=== PATIENT | male | born 1955 | race Caucasian/White ===

== ENCOUNTER → 2022-02-06 10:09 | Outpatient (CLI) | payer MEDICARE, SELFPAY ==
[2022-02-06 11:16] LABS: COVID19 -Nasal RAPID Negative (Negative)
== END ==
PROVIDERS: PCP Physician Assistant; Referring Provider Orthopaedic Surgery; Visit Provider Orthopaedic Surgery
DX: Z20.822 Contact with and (suspected) exposure to COVID-19 (principal)
CPT/HCPCS: 87635; C9803

== ENCOUNTER 2022-02-07 10:51 | Day surgery (SDC) | payer MEDICARE, SELFPAY ==
[2022-02-06 09:07] VITALS: BMI 42.0
[2022-02-07] VITALS (12 sets, daily range): BP systolic 105–149; BP diastolic 71–90; PULSE 70–105; RESP 16–27; TEMP 36.3–36.4; O2SAT 92–97; BMI 42.0
--- NOTE | 2022-02-07 06:00 | DI.RAD.S_ITS ---
PROCEDURE: XR KNEE LT 1TO2V INDICATIONS: prosthesis placement TECHNIQUE: 2 view(s) of the knee acquired. COMPARISON: [facility], CR, XR KNEE 4+ VIEWS LEFT, 09/13/2021, 9:24. FINDINGS: Bones: Patient is status post knee joint arthroplasty. Hardware components are in expected positions. Visualized bony structures are intact. Soft tissues: Overlying postoperative changes are noted. IMPRESSION: Status post knee arthroplasty as above. Dictated by: Lilian Arias M.D. on 02/07/2022 at 16:25 Approved by: Lilian Arias M.D. on 02/07/2022 at 16:25
[2022-02-07] MEDS: LACTATED RINGERS 1,000 ML 42 ML IV (12:05)
[2022-02-07] MEDS: ACETAMINOPHEN 325 MG TABLET 975 MG PO (12:09)
[2022-02-07] MEDS: PREGABALIN 75 MG CAPSULE PO (12:09)
[2022-02-07] MEDS: CELECOXIB 200 MG CAPSULE PO (12:09)
--- NOTE | 2022-02-07 13:04 | PM.PREOP ---
Pre-operative Note COVID-19 COVID-19 status: Negative Result date/Date tested (Pos, Neg/Pending): 02/06/22 Interval Note History & Physical reviewed/Exam performed by Physician: Yes Changes to H&P: No
--- NOTE | 2022-02-07 13:37 | SUR.PREOP ---
Block start time 1320 . Monitoring initiated and maintained throughout procedure. Oxygen and medications given per anesthesiologist instructions. Patient remained stable throughout procedure, no adverse reactions noted. Block end time 1329.
[2022-02-07] MEDS: CEFAZOLIN 2 GM/100 ML PREMIX 100 ML IV (14:05)
[2022-02-07] MEDS: MORPHINE 4 MG/ML INJ INJ (14:22)
[2022-02-07] MEDS: BUPIVACAINE 0.25% (PF) 60 ML, EPINEPHrine 0.3 MG INJ (14:23)
--- NOTE | 2022-02-07 14:26 | SUR.OPER ---
Supine on padded OR bed. Pillow under head, arms secured on padded armboards <90 degree abduction. Safety belt across torso. Non-operative leg secured with tape over blanket over lower leg. Operative leg secured in DeMayo/Marcel/Nathe positioner. Foam padded brace at thigh of operative leg. Position approved by surgeon and anaesthesia
[2022-02-07] MEDS: BUPIVACAINE LIPOSOME 266 MG/20 ML VIAL INJ (15:27)
--- NOTE | 2022-02-07 15:48 | PM.OP.1 ---
Operative Date/Time/Diagnoses Date of procedure: 02/07/22 Time of procedure: 15:48 Pre-op diagnosis: Left knee osteoarthritis Post-op diagnosis: same Procedure & Clinicians Procedure: Left total knee replacement Same procedure as scheduled: Yes Indications: The patient has had progressively worsening left knee pain with radiographic changes consistent with arthritis. Non-operative management has failed and the patient has requested total knee replacement. The risks, benefits and alternatives to surgery were discussed with the patient prior to proceeding. Risks discussed included, but were not limited to, failure to relieve pain, stiffness, infection, nerve damage, deep venous thrombosis, pulmonary embolism, stroke, coma, heart attack, permanent paralysis and , as well as the potential need for eventual revision of the prosthetic. Surgeon: Luis Darling Electrical Designer: Angela Wick Click Yes if Unassisted: No Anesthesia Type: Spinal, Sedation, Peripheral nerve block and Local Operative Notes Findings: Severe medial and patellofemoral osteoarthritis Closure Type: primary Specimen(s): none sent Prosthetic devices, grafts, tissues, transplants, or devices: Implants used in this procedure were manufactured by the [employer] and [employer] and included the BCS II Journey total knee replacement with a size 7 left Oxinium femoral component, a size 7 left non porous tibial base plate, a 9 mm cross-linked polyethylene tibial insert and a 38 mm oval Sofia II patella. Applied: implant(s) Estimated Blood Loss (mL): 25 Tourniquet time (min): 53 Procedure in detail: The patient was seen in the pre-operative area, where the left knee was identified as the operative site and this was marked with my initials. The patient received pre-operative antibiotics, and was taken to the operating room and placed on the operative table in the supine position. After satisfactory anesthesia, a maritime guard out was performed. The left leg was encircled with a tourniquet about the proximal thigh, and the leg was prepared from the toes to the tourniquet with ChloroPrep in the usual fashion and draped through sterile drapes. The leg was elevated and exsanguinated with Eschmark bandage and the tourniquet inflated to 250 mmHg pressure. The knee was approached through an approximately 18 cm incision centered over the patella and carried into the knee through a medial parapatellar arthrotomy. The anterior osteophytes and soft tissues were removed. The rotational landmarks of [place]'s line and the transepicondylar axis were marked on the femur with electrocautery, and intramedullary guide holes for the femur and tibia were created. The distal femoral cut was made in 6 degrees of valgus using the intramedullary guide at the primary cut setting. The proximal tibial cut was then made using the intramedullary guide, taking 9 mm of bone off the less involved side. The extension gap was checked and the rotation of the femoral component confirmed with the gap balancing blocks. The anterior, posterior and chamfer cuts were then made. The posterior osteophytes and soft tissues were then removed. The posterior capsule was injected with part of a mixture of 50 ml 0.25% Marcaine mixed with 20 ml Exparel and 4 mg of morphine for post-operative pain control. The remainder of this mixture was injected into the capsule and subcutaneous tissues during cement curing. The tibia was prepared with the rotation set by an extra medullary guide. Trial tibial and femoral components were then placed and the intercondylar notch cut through the femoral trial. Range of motion was 0-135 degrees, with good stability throughout the range. The patella was then cut to accommodate the patellar prosthetic. There was no need for a lateral release. The trials were then removed, and the femoral hole plugged with a bone plug. The bone was prepared with pulsatile lavage, and dried with a sponge. Cement was applied and the final prosthetics placed. Excess cement was removed during and after cement curing. After confirming there was no extruded cement posteriorly, the final tibial insert was placed. The knee was copiously irrigated and the tourniquet deflated. Hemostasis was obtained. The capsule was closed with interrupted # 2 polyester sutures. The subcutaneous layer was closed with 3-0 Vicryl, and the skin with a running 3-0 V-Lock suture and Dermabond. An Aquacel Ag dressing was applied and the patient was taken to recovery having tolerated the procedure well. A skilled legal administrative assistant was required during this operation for positioning the leg and exposure of the knee. Without the services of Ms. Wick the case would have not been completed as expediently and this would have put the patient at additional risk. Complications: none Post-operative Condition: stable Disposition: PACU Plan for aftercare: The patient will be maintained on a standard total knee replacement protocol with weight bearing as tolerated. The patient will receive aspirin and sequential compression devices for DVT prophylaxis. The patient will be discharged home when safe for the home environment.
--- NOTE | 2022-02-07 16:18 | SUR.PHASEI ---
1618: Pt recovering very well, A&Ox4, denies any distress, VSS, spinal at L5, pulses strong, and ready to transfer to room. Attempt to call report to floor, RN busy at this time, will return call when available. ALEX Moss x 1310. 2 attempts to update family-no answer.
[2022-02-07] MEDS: LACTATED RINGERS 1,000 ML 100 ML IV (18:51)
[2022-02-07] MEDS: ACETAMINOPHEN 325 MG TABLET 650 MG PO (19:05)
[2022-02-07] MEDS: OXYCODONE IR 10 MG TABLET PO (19:05)
--- NOTE | 2022-02-07 19:55 | PC.NURSE ---
Ortho: Pt has most of the sensation back to his lower legs, block and spinal has worn off. Started to have pain. Po pain meds given and effective for now. Resting quietly watching TV. Has not voided since his last void prior to OR. REGIONAL PLANNER called to come bladder scan the patient. Pt doesn't feel the need to void at this time. PPP, brisk cap refill to feet. moves toes. Denies any sensation changes.
[2022-02-07] MEDS: METFORMIN HCL 500 MG TABLET PO (22:05)
[2022-02-07] MEDS: DOCUSATE 100 MG CAPSULE PO (22:05)
[2022-02-07] MEDS: METOPROLOL ER 50 MG TABLET 200 MG PO (22:06)
[2022-02-07] MEDS: HYDROMORPHONE 2 MG TABLET PO (22:06)
[2022-02-07] MEDS: ATORVASTATIN 20 MG TABLET 80 MG PO (22:06)
[2022-02-07] MEDS: MIRTAZAPINE 15 MG TABLET PO (22:07)
[2022-02-07] MEDS: hydrOXYzine pamoate 25 MG CAPSULE PO (22:07)
[2022-02-07] MEDS: gemfibroziL 600 MG TABLET PO (22:08)
[2022-02-08 01:00] VITALS: BP 113/58; PULSE 80; RESP 16; TEMP 36.9; O2SAT 94
[2022-02-08] MEDS: HYDROMORPHONE 2 MG TABLET PO ×4 (01:55→11:18)
[2022-02-08] MEDS: hydrOXYzine pamoate 25 MG CAPSULE PO ×2 (04:56→11:17)
[2022-02-08] MEDS: ACETAMINOPHEN 325 MG TABLET 650 MG PO ×2 (05:03→11:17)
[2022-02-08 05:11] VITALS: BP 138/77; PULSE 90; RESP 18; TEMP 36.4; O2SAT 96
[2022-02-08 05:26] LABS: Hematocrit 32.2 % (41-53); Hemoglobin 11.1 g/dL (13.5-17.5)
[2022-02-08] MEDS: PANTOPRAZOLE DR 20 MG TABLET PO (05:55)
--- NOTE | 2022-02-08 07:49 | PM.DS.1 ---
History of Present Illness History of Present Illness Date Patient Seen: 02/08/22 Time Patient Seen: 07:49 Chief complaint: left TKA Narrative: Operative Date/Time/Diagnoses Date of procedure: 02/07/22 Time of procedure: 15:48 Pre-op diagnosis: Left knee osteoarthritis Post-op diagnosis: same Procedure & Clinicians Procedure: Left total knee replacement Same procedure as scheduled: Yes Indications: The patient has had progressively worsening left knee pain with radiographic changes consistent with arthritis. Non-operative management has failed and the patient has requested total knee replacement. The risks, benefits and alternatives to surgery were discussed with the patient prior to proceeding. Risks discussed included, but were not limited to, failure to relieve pain, stiffness, infection, nerve damage, deep venous thrombosis, pulmonary embolism, stroke, coma, heart attack, permanent paralysis and , as well as the potential need for eventual revision of the prosthetic. Surgeon: Luis Darling Hospital Attendant: Angela Wick Click Yes if Unassisted: No Anesthesia Type: Spinal, Sedation, Peripheral nerve block and Local Operative Notes Findings: Severe medial and patellofemoral osteoarthritis Closure Type: primary Specimen(s): none sent Prosthetic devices, grafts, tissues, transplants, or devices: Implants used in this procedure were manufactured by the [employer] and included the BCS II Journey total knee replacement with a size 7 left Oxinium femoral component, a size 7 left non porous tibial base plate, a 9 mm cross-linked polyethylene tibial insert and a 38 mm oval Sofia II patella. Applied: implant(s) Estimated Blood Loss (mL): 25 Tourniquet time (min): 53 Discharge Providers Provider Discharge Date: 02/08/22 Primary care physician: Amee Ramires PA-C Consults: 02/07/22 16:43 Consult to Discharge Planning Routine Comment: Consult to Physical Therapy Evaluate & Treat Comment: Physician Instructions: postop TKA protocol Discharge provider: Opal Ramires PA-C Summary Hospital Course Discharge Diagnosis: s/p LEFT total knee arthroplasty Acute anemia d/t expected surgical blood loss Hospital Course: Mr Christensen's hospital course was unremarkable. On POD#1 he was sitting up in bed and feeling well; no difficulty eating or voiding. His pain was adequately controlled on oral medication and he wanted to go home pending evaluation and clearance by PT. He has a friend at home to help him who has a h/o B TKA. Exam Vital Signs (past 8 hours): - 02/07/22 23:51 02/08/22 01:00 02/08/22 05:11 Temperature 98.4 F 97.6 F Pulse Rate 70 80 90 Respiratory Rate 16 18 Blood Pressure 122/80 113/58 L 138/77 Pulse Oximetry 94 96 Oxygen Flow Rate 2 2 Oxygen Delivery Method Nasal Cannula Oxygen Flow Rate 2 Narrative Exam Narrative: 4/5 strength in hip flexors, quadriceps, hamstrings; 5/5 DF, PF, EHL on left. Sensation to light touch intact throughout LLE. Calves soft, compressible, nontender and without palpable cords or masses. TROY and Aquacel CDI. Objective Labs Result Diagrams: 02/08/22 05:02 Labs: Laboratory Results - last 24 hr 02/08/22 05:02 Hgb 11.1 L Hct 32.2 L PFSH Medical History (Updated 02/06/22 @ 09:19 by Chantal Manzanares RN) Cardiomyopathy CHF (congestive heart failure) Depression Diabetes (~2017) Easy bruisability GERD (gastroesophageal reflux disease) HLD (hyperlipidemia) HTN (hypertension) Hyperthyroidism Osteoarthritis Surgical History (Updated 02/08/22 @ 07:56 by Opal Ramires PAElliott) AICD (automatic cardioverter/defibrillator) present (08/04/18) History of bilateral carpal tunnel release History of hand surgery History of total left hip arthroplasty (08/04/13) History of total right hip arthroplasty (12/2013) Hx of bilateral cataract extraction Hx of hernia repair Hx of tonsillectomy 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 Multimodal pain control, outpt PT, warfarin with enoxaparin bridge and ASA 81 mg daily for VTE prophylaxis. Discharge Plan Discharge Plan Patient Disposition: Home Discharge orders & Medications Discharge Orders: Discharge (Order); Ordered 02/08/22 Ordered By: Opal Ramires Prescriptions: New oxycodone 5 mg Tablet 5 mg PO Q4H PRN (Reason: Pain, Moderate (4-6)) Qty: 60 0RF hydromorphone 2 mg Tablet 2 mg PO Q3H PRN (Reason: Pain, Severe (7-10)) Qty: 10 0RF acetaminophen 325 mg Tablet 650 mg PO Q6HR PRN (Reason: fever or pain) Qty: 240 1RF docusate sodium 100 mg Capsule 100 mg PO BID PRN (Reason: constipation) Qty: 60 2RF hydroxyzine pamoate 25 mg Capsule 25 mg PO Q4H PRN (Reason: muscle spasm) Qty: 120 1RF Continued metformin 500 mg Tablet 500 mg PO BID atorvastatin 80 mg Tablet 80 mg PO BEDTIME venlafaxine 75 mg Tablet 150 mg PO DAILY metoprolol succinate 200 mg Tablet Extended Release 24 Hr 200 mg PO BID gemfibrozil 600 mg Tablet 600 mg PO BID lisinopril 10 mg Tablet 10 mg PO DAILY warfarin 5 mg Tablet 5 mg PO DAILY omeprazole 20 mg Capsule,Delayed Release(Dr/Ec) 20 mg PO DAILY mirtazapine 15 mg Tablet 15 mg PO BEDTIME enoxaparin 40 mg/0.4 mL Syringe 40 mg SUBCUT Q12H Label Comments: Bridge will start 02/01/22 for left knee surgery 02/07/22 duloxetine 60 mg Capsule,Delayed Release(Dr/Ec) 60 mg PO DAILY aspirin 81 mg Capsule 81 mg PO DAILY Follow up/Referrals: Amee Ramires PA-C [Primary Care Provider] - Luis Darling MD [Physician] - As previously scheduled (Follow up w/ Adalberto Peñaloza PA-C, on 02/22/2022 @ 3:40 pm at [facility] in [place].) Diet/Activity/Treatments Diet: Diet as Tolerated Activity: Walk frequently! Cold/Heat Therapy: Ice to knee as needed for pain. Skin/Wound/Dressing Care Report to your healthcare provider any signs of infection, such as:: chills, fever, night sweats, unusual drainage and unusual redness Dressing: May remove TROY wrap and shower. Keep Aquacel dressing in place until follow up appointment. No bathing or otherwise soaking incision. Visit Report/Discharge Packet Instructions: DI for Knee Replacement Stand Alone Forms: Surgery Discharge Discharge Data Primary Care Provider: Amee Ramires I Attending Provider: Luis Darling Quality VTE Deep Vein Thrombosis/Pulmonary Embolism Present on Admission: No
[2022-02-08] MEDS: HYDROMORPHONE 0.5 MG INJ 0.2 MG IV ×3 (07:53→11:21)
[2022-02-08 08:00] VITALS: BP 133/97; PULSE 105; RESP 17; TEMP 36.3; O2SAT 98
[2022-02-08] MEDS: METFORMIN HCL 500 MG TABLET PO (08:00)
[2022-02-08 08:01] VITALS: BP 138/77; PULSE 90
[2022-02-08] MEDS: METOPROLOL ER 50 MG TABLET 200 MG PO (08:01)
[2022-02-08] MEDS: DOCUSATE 100 MG CAPSULE PO (08:01)
[2022-02-08 08:07] VITALS: BP 138/77; PULSE 90
[2022-02-08] MEDS: VENLAFAXINE 37.5 MG TABLET 150 MG PO (08:07)
[2022-02-08] MEDS: lisinopriL 10 MG TABLET PO (08:07)
[2022-02-08] MEDS: WARFARIN 5 MG TABLET PO (08:09)
[2022-02-08] MEDS: DULOXETINE 30 MG CAPSULE 60 MG PO (08:09)
--- NOTE | 2022-02-08 09:03 | CM.DANOTE ---
DCP Assessment: Payor: [employer] Medicare PCP: Randi Ramires MD Pt is a 66 y.o. M who presented to the hospital for a scheduled left TKA surgery with Dr. Darling on 02/07/22. Pt admitted to the floor for further management and evaluation of his surgical procedure. DCP met with pt this morning to discuss discharge needs. Pt sitting up in bed eating breakfast. Pt states that she lives with his significant other, Monique, in a single story house in [place]. Pt states he is independent at baseline and drives POV. Pt uses a cane and owns a FWW. Pt confirms PCP and insurance. Pt denies previous HH use. DCP explained HH services. DCP stated that she would be able to set up if it is recommended. Pt states that he has outpatient PT services set up already. Pt denies any resources at this time. White board updated and instructed to call. Pt thankful for discussion. P: Pt to work with PT today for eval. If cleared, pt to discharge home via SO POV. R/O HH services. Holley Vergara RN/RAJEEV Discharge Planning/Care Management Advanced directive, confirm from FAMILY Start: 02/07/22 16:59 Freq: Q24H Status: Active Protocol: Document 02/07/22 17:03 CEW (Rec: 02/07/22 17:03 CEW [id number]) Advance Directive, confirm on record Time 17:03 Person contacted patient Copy received No CM Discharge Assessment Start: 02/08/22 09:02 Freq: Status: Active Protocol: Document 02/08/22 09:02 DANIEL (Rec: 02/08/22 09:03 AJ [id number]) Discharge Planning Assessment Assigned Mask Designer Holley Vergara RN/RAJEEV Advance Directives? Yes Advance Directives on File No History Provided By Patient,Medical Record Prior Living Arrangements House Household Members significant other Type of transporation used prior to Drives own vehicle admit Independent with ADL's Yes Is patient alert and oriented? Yes Caregiver for Another No DME Already Rented / Owned FWW / Walker,Cane Discharge Plan Home Transportation Arrangement Girlfriend POV Referrals Initiated None needed Additional Comment At this time. Whiteboard Updated in Patient Room with Yes name and ext. # of Mask Designer Comment Instructed to call Review Status In Process Please Provide Date Initial DC 02/08/22 Assessment Was Performed Next Review Type Continued Stay Review Pre-Anesthesia Assessment Start: 01/29/22 12:53 Freq: Status: Active Protocol: Document 02/06/22 09:07 CAB (Rec: 01/29/22 13:47 [facility] [id number]) Pre-Anesthesia Assessment Patient Information Reviewed Via Phone Assessment Assessment Completed With Patient Diagnostic Results BMP/CMP,CBC,EKG Comment Outside labs/ECG scanned, COVID screen @ 02/06/22 Primary Care Provider Amee Ramires Seen Specialist in Last 12 Months Yes Specialist Seen Resort Host,Orthopedist Primary Language [employer] Computer Technical Support Specialist Required No Height 176.53 cm Weight 131.088 kg Body Mass Index (BMI) 42.0 Visual Assist Glasses Dentition Type Full- Upper & Lower Barriers to Learning Memory Hx Anesthesia Reactions No Hx Family Anesthesia Reaction No Hx Malignant Hyperthermia No Hx Blood Transfusions No Anesthesia Review Requested No alcohol intake former Alcohol Intake Frequency Other: Hx alcoholism, sober since 2017 Smoking Status Former smoker Tobacco type cigarettes how long ago did patient quit smoking Quit 2017 Substance Use Type does not use Pain Present Pain Reported Musculoskeletal Symptoms Abnormal Gait,Back Pain, Difficulty Walking,Joint Pain, Neck Pain History of Falling (Recent or History of No ) Patient is completely paralyzed or No completely immobile Prosthesis or Orthotic Device Cane Mental Status Oriented to own ability Is patient on oxygen? No Does patient have WONG/SOB Yes: r/t deconditioning per pt Hx Sleep Apnea No Currently Taking a Beta Aldair Yes: Metoprolol Hx Chest Pain No Hx SOB Yes: r/t deconditioning per pt Hx Syncope or Dizziness No Anti-Coagulant Therapy Yes: Warfarin-will hold 02/01, lovenox bridge per Cardiology- pt will check on ASA Has a Resort Host Yes Resort Host name Dr. Lashell Red Cardiac Testing Recent echo @ [facility] 12/27/21 Hx Pacemaker/ICD Yes Pacemaker Rep Required? Yes: Angie notified Silvio/ Ming 01/30/22-form scanned & in surgery folder for dos Comment Cardiac records scanned Diet Type At Home Regular dysphagia No Gastrointestinal Symptoms Constipation Urinary Catheter Present No Hx Urinary Self Catheterization No Diabetes Yes: Pt does not check blood sugar HgbA1C 6.5 Date 01/23/22 Hx Drug Resistant Organism No Presence of External or Internal Medical Yes: Bilat hip, eye IOLs, AICD Devices , CABG Have you had any close contact with No someone diagnosed with COVID-19? Received a COVID vaccine? Yes Received all doses? Yes Marital Status Lives With other Prior Living Arrangements House Number of Floors (Floors) One Floor Does the Patient Have Assistance After Yes: Ex- lives w/pt and Surgery will assist with care at DC Patient Discharge Plan Description Return Home Comment Pt not advised on length of stay per surgeon Feels Safe in Current Environment Yes Been Physically Hurt or Threatened By a No Person in Current Environment Do you have thoughts of harming yourself None or others? Are you currently considering suicide? No Do you have a plan to hurt yourself or No Plan others? Do You Have Any Spiritual Beliefs That No May Affect Your HC Choices? Do You Have Any Cultural Practices That No May Affect Your HC Choices? Comment Brando Who Can We Speak to About Patient's Care Family, friends Identifying Code for Release of Patient Declines to issue Information Health Care Proxy/Next of Kin Monique (Ex-) Health Care Proxy Emergency Contact Name Monique (Ex-) Emergency Contact Advance Directives? Yes Advance Directives on File No Requested Patient Bring Advanced Yes Directives DOS Power of Documentation Clerk Yes Power of Documentation Clerk Name Monique (Ex-) Power of Documentation Clerk PAC Instructions Diabetes instructions,Durable medical equipment,Medications to take/avoid,Nasal antibiotic ,No ETOH/petroleum product on skin DOS,NPO,Post-op transportation,Sensory aids, Sturdy shoes/comfortable clothes,Do not bring valuables and remove jewelry
[2022-02-08] MEDS: OXYCODONE IR 10 MG TABLET PO (09:11)
[2022-02-08] MEDS: gemfibroziL 600 MG TABLET PO (10:00)
[2022-02-08] MEDS: ASPIRIN EC 81 MG TABLET PO (10:00)
--- NOTE | 2022-02-08 12:23 | PC.NURSE ---
Pt received A&OX3, awake c/o pain to L knee. He is given prn pain medications per orders with good effect. He is slightly diaphoretic with activity this a.m. BG 141 and he eats 100% of breakfast denies N/V. He is evaluated by PA and cleared for discharge pending PT this a.m. After he works with PT he is cleared for discharge home and he arranges for ride pickler helper with friend at noon. He is given prn medications for activity anticipated with discharge transfers home. He verbalizes understanding of discharge medications, activity, site care, s/sx of infection or worsening symptoms as well as follow up care. He is escorted at 1210 by ONLINE MARKETING ANALYST via w/ch to private vehicle with friend with all of his belongings including FWW.
--- NOTE | 2022-02-08 16:28 | PT.IPTN ---
Current Diagnoses Unilateral primary osteoarthritis, left knee (02/07/22) Presence of unspecified artificial knee joint (02/07/22) Surgery Performed Operation Date: 02/07/22 13:15 Actual Procedures p Total Knee Arthroplasty(Left) - Luis Darling MD Physical Therapy Treatment Note M2 PT-IP Current Condition Start: 02/08/22 09:48 Freq: NEEDED Status: Discharge Protocol: Document 02/08/22 09:00 AMB (Rec: 02/08/22 16:28 AMB [id number]) Physical Therapy Current Condition Current Condition Evaluation Date 02/08/22 Treatment Diagnosis TKA--L Onset Date 02/07/22 M3 PT-IP Subjective Start: 02/08/22 09:48 Freq: NEEDED Status: Discharge Protocol: Document 02/08/22 09:00 AMB (Rec: 02/08/22 16:28 AMB [id number]) Subjective Physical Therapy Visit Type Type Initial Evaluation Visit Start Time 09:00 Visit Stop Time 09:45 Total Visit Minutes 45 Physical Therapy Visit Comments Patient Comments Adam states his pain has been pretty bad with movement, 2/ 10 at rest, but 10/10 with movement, nursing provides pain medication right before treatment. Denies nausea/ dizziness/ has not been up to the bathroom yet. M4 PT-IP Mobility and Gait Start: 02/08/22 09:48 Freq: NEEDED Status: Discharge Protocol: Document 02/08/22 09:00 AMB (Rec: 02/08/22 16:28 AMB [id number]) PT-Bed Mobility Assessment Rolling Type of Rolling Roll to Left Level of Assist Standby Assistance Supine to Sit Supine to Sit Minimal Assistance PT-Transfer Assessment Sit to and From Stand Sit to and from Stand Minimal Assistance Equipment Transfer Assistive Device Bed Rail,Gait Belt,Front Wheeled Walker Transfers Transfer Destination Bed,Chair Transfer Technique Stand Step Pivot Transfer Ability Level of Assist Contact Guard Assistance Comments Mobility Comments Rolled from bed to edge then sidelying to sit with Eileen for management of surgical leg. Sit to stand with UE support from bed, good safety awareness. Gait Assessment Gait Gait Assistance Required: Contact Guard Assist Distance (Feet) 10 Assistive Devices Assistive Device Gait Belt,Front Wheeled Walker Factors Limiting Gait Function Factors Limiting Gait Function Decreased Strength,Limited Range of Motion,Pain,Poor Balance Comments Gait Comments Ambulated with FWW with step to gait, pain limits weightbearing, appropriate FWW use 5' from bed to step in room, then back to bed, then to chair. Stair Climbing Assessment Evaluation Level of Assist On Stairs Contact Guard Assistance,1 Person Assistance Devices Stair Climbing Assistive Devices Front Wheel Walker Technique/Endurance Stair Climbing Direction Ascend and Descend Stair Climbing Technique Step to Step Number of Steps Climbed 1 Stair Climbing Set # Repetitions (reps) 2 Comments Stair Climbing Comments Pt used FWW to step up and down onto platform stair leading up with non surgical leg. Increased pain but only required CGA. SO was not present during treatment, but verbally explained to patient. M5 PT-IP Objective Assessments Start: 02/08/22 09:48 Freq: NEEDED Status: Discharge Protocol: Document 02/08/22 09:00 AMB (Rec: 02/08/22 16:28 AMB [id number]) Orientation Orientation/Cognition Level of Alertness Alert Gross Range of Motion Upper Extremity ROM Assessment Within Functional Limits Lower Extremity ROM Assessment Left Impaired Strength Upper Extremity Strength Assessment Within Functional Limits Lower Extremity Strength Assessment Left Impaired Hip 4 Knee 2 Ankle 4 Comments Strength Comments Pain limits strength M6 PT-IP Treatment Start: 02/08/22 09:48 Freq: NEEDED Status: Discharge Protocol: Document 02/08/22 09:00 AMB (Rec: 02/08/22 16:28 AMB [id number]) Physical Therapy Treatment Exercises Exercises Quad Sets,Heel Slides Education Education Provided Weight Bearing Status,Post-Op Packet M7 PT-IP Assessment and Plan Start: 02/08/22 09:48 Freq: NEEDED Status: Discharge Protocol: Document 02/08/22 09:00 AMB (Rec: 02/08/22 16:28 AMB [id number]) PT Summary Assessment and Plan Potential Rehabilitation Potential Good Status of Condition at Evaluation Stable Summary Impairments Pain,ROM,Strength,Balance,Bed Mobility,Gait,Activity Tolerance Assessment Summary Adam had L TKA and continues to have pain. He was able to ambulate 10 feet with FWW and CGA. Recommended his SO assist with gait/stairs/car transfer when they get home. The stairs to enter will be challenging considering he does not have a railing, he does have a post to pull on. He was able to ascend and descend a platform stair with the FWW and discussed how to safely perform with his SO/FWW /and pole. Time spent explaining importance of ice, elevation and movement, went through written HEP, encouraged in exercise at home before outpatient PT. Cleared for d/c tarsha with SO when medically cleared. Goals Bed Mobility Goal Independent Transfer Goal Standby Assistance Gait Goal Standby Assistance Gait Distance 50 Other Goals Ascend and descend 3 steps with SBA Days to Meet Goals 1 Frequency of Treatment Frequency Of Treatment Discharge Treatment Plan Physical Therapy Treatment Plan Bed Mobility Training,Transfer Training,Gait Training, Therapeutic Exercise, Neuromuscular Re-ed Weight Bearing Status Weight Bearing Status Weight Bear as Tolerated Recommendations To Nursing Amount of Assist Needed 1 Person Assist Discharge Recommendations PT Discharge Recommendations Home with Assistance Transportation Needs at Discharge Private Vehicle
== END 2022-02-08 12:15 | disposition home or self-care (01) ==
LOC: OR 10:52 → AC 10:53
PROVIDERS: PCP Physician Assistant; Referring Provider Orthopaedic Surgery; Visit Provider Orthopaedic Surgery
PROC: 0SRD0JZ Replacement of Left Knee Joint with Synthetic Substitute, Open Approach (ICD-10-PCS; CPT 27447; principal; 2022-02-07 13:15)
DX: M17.12 Unilateral primary osteoarthritis, left knee (principal); D62 Acute posthemorrhagic anemia; I25.10 Atherosclerotic heart disease of native coronary artery without angina pectoris; I10 Essential (primary) hypertension; E11.9 Type 2 diabetes mellitus without complications; E66.01 Morbid (severe) obesity due to excess calories; Z79.84 Long term (current) use of oral hypoglycemic drugs; Z95.0 Presence of cardiac pacemaker; Z95.1 Presence of aortocoronary bypass graft; Z79.01 Long term (current) use of anticoagulants; Z68.30 Body mass index [BMI] 30.0-30.9, adult
CPT/HCPCS: 27447; 36415; 64450; 73560; 82962; 85014; 85018; 85610; 97161; C1776; C1713; C9290; J0171; J0690; J1170; J1815; J2250; J2270; J3010